=== PATIENT | female | born 1990 | race Caucasian/White ===

== ENCOUNTER 2025-11-23 08:56 | Emergency (ER) | payer OTHER, SELFPAY ==
--- NOTE | ~2025-11-23 | US_ITS ---
US abdomen limited INDICATION: Upper abdomen pain PROCEDURE: Realtime right upper abdominal ultrasound. COMPARISON: No prior studies for comparison. FINDINGS: The pancreas is normal without focal mass or pancreatic ductal dilation. Liver echotexture is increased, consistent with fatty infiltration. There is normal directional flow in the portal vein. There are gallstones. No gallbladder wall thickening or pericholecystic fluid. Common bile duct measures 4 mm. No sonographic Castano's sign. IMPRESSION: 1: Cholelithiasis. 2: Fatty infiltration of the liver. Reviewed, dictated and finalized at location O. TION GUIDE
--- NOTE | ~2025-11-23 | CT_ITS ---
CT abdomen pelvis w con Clinical History: upper abd pain, n/v . Comparison: None Technique: Axial images lung bases to symphysis pubis IV contrast information not listed in PACS Coronal, sagittal reformats CT images acquired with automatic exposure control for dose reduction DLP: 358 mGy-cm Findings: Lung bases: Clear. Visualized heart and pericardium: Unremarkable. Liver: Enlarged. Steatosis. Gallbladder: Unremarkable. Spleen: Unremarkable. Pancreas: Unremarkable. Adrenal glands: Unremarkable. Kidneys: Right kidney- No hydronephrosis. No renal stones. Left kidney- No hydronephrosis. No renal stones. Distal esophagus/stomach: Mild distal esophageal wall thickening/esophagitis. Small bowel loops: Normal caliber and wall thickness. Colon: Normal caliber and wall thickness. Normal RLQ appendix. Nodes: No enlarged nodes. Peritoneum: No ascites. No free air. Urinary bladder: Unremarkable. Uterus: IUD within presacral space rather than canal. Adnexa: No masses. Tampon within vagina. Bones: No acute bony abnormality. Soft tissues: Small umbilical hernia with fat. Aorta: No aneurysm or dissection. IVC: Unremarkable. Main portal vein/SMV/splenic vein: Patent. IMPRESSION: 1. No acute findings. 2. Malpositioned IUD, within right-sided perirectal fat rather than endometrial canal. Recommend gynecology consultation. Reviewed, dictated and finalized at location R. SS SERVICES REPRESENTATIVE IMPRESSION: 1. No acute findings. 2. Malpositioned IUD, within right-sided perirectal fat rather than endometria l canal. Recommend gynecology consultation.
--- OUTSIDE RECORDS SUMMARY | 2025-11-23 09:04 | XMS_ITS | Clinical Summary ---
Author Organization [facility] Medical Office Building B Address [address] [place] [address] Care Team Providers Care Balance Recesser Name Role Phone Maribel Jackson NP Primary Care Provider [phone] Allergies No known active allergies Medications ondansetron (ZOFRAN) 8 mg tablet Take by mouth every 8 (eight) hours as needed for nausea or vomiting. Active acetaminophen-as pirin-caffeine (EXCEDRIN MIGRAINE) 250-250-65 mg per tablet Take 1 tablet by mouth every 6 (six) hours as needed. Active topiramate (TOPAMAX) 50 mg tabletIndication s:Chronic migraine without aura without status migrainosus, not intractable Take 1 tablet (50 mg total) by mouth 2 (two) times a day. 60 tablet 3 9 Active SUMAtriptan (IMITREX) 100 mg tabletIndication s:Migraine Take one tabet po q2h prn as soon as feel headache is coming. No more than 2 tablets in 24 hours. 9 tablet 3 9 Active Active Problems Problem Noted Date Diagnosed Date Chronic migraine without aur a without status migrainosus, not intractable 12/28/2018 Medical History Medical History Date Comments Migraine Family History Medical History Relation Name Comments Migraines Mother Relation Name Status Comments Mother Social History Tobacco Use Types Packs/Day Years Used Date Smoking Tobacco: Former Cigarettes Smokeless Tobacco: Never Alcohol Use Standard Drinks/Week Comments Yes 0 (1 standard drink = 0.6 oz pur e alcohol) Comments No Sex and Gender Information Value Date Recorded Sex Assigned at Not on file 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 Gender Identity Not on file Sexual Orientation Not on file Last Filed Vital Signs Vital Sign Reading Time Taken Comments Blood Pressure 113/82 04/05/2021 12:59 PM CDT Pulse 101 04/05/2021 12:59 PM CDT Temperature 37.1 C (98.8 F) 04/05/2021 12:59 PM CDT Respiratory Rate 20 04/05/2021 12:59 PM CDT Oxygen Saturation 99% 04/05/2021 12:59 PM CDT Inhaled Oxygen Concentration - - Weight 59 kg (130 lb) 04/05/2021 1:01 PM CDT Height 157.5 cm (5' 2) 04/05/2021 1:01 PM CDT Body Mass Index 23.78 04/05/2021 1:01 PM CDT Plan of Treatment Health Maintenance Due Date Last Done Comments Cervical Cancer Screening 1990 Depression Screening 1990 Hepatitis C Screening 1990 Varicella Vaccines (1 of 2 - 13+ 2-dose series) 2003 Regular Well Visit/Exam 18-64 2008 HPV Vaccines (1 - 3-dose SCDM series) 2017 DTaP/Tdap/Td Vaccine (8 - Td or Tdap) 07/04/2022 07/04/2012, 06/27/2006, 07/12/1996, Additional history exists Covid-19 Vaccine (2024- season) 2025 10/26/2021, 04/06/2021, 03/09/2021 Influenza Vaccine (#1) 2025 Hepatitis B Screening Completed 06/24/2002 , 11/11/2001, 10/06/2001 Pneumococcal vaccine <65 Aged Out No longer eligible based on patient's age to complete this topic Insurance [facility] Care Teams Balance Recesser Relationship Specialty Start Date End Date Maribel Jackson NP [address] [facility] [address] [place] [address] PCP - General 04/05/21
--- OUTSIDE RECORDS SUMMARY | 2025-11-23 09:04 | XMS_ITS | Clinical Summary ---
Author Organization [facility] Address [address], [place] [address] Phone Care Team Providers Care Gatekeeper Name Role Phone Maribel Barahona APRN, LIBBY Primary Care Provid er Social History Tobacco Use Types Packs/Day Years Used Date Smoking Tobacco: Never Assessed Comments Unknown Sex and Gender Information Value Date Recorded Sex Assigned at Not on file Legal Sex Female 10:45 PM CDT Gender Identity Not on file Sexual Orientation Not on file Plan of Treatment Health Maintenance Due Date Last Done Comments Hepatitis C Virus (HCV) Screening 1990 Varicella Immunization (1 of 2 - 13+ 2-dose series) 2003 Pap Smear 2011 Cervical Cancer Screening (CCS) 2020 HPV/Cotest 2020 Influenza Immunization (#1) 2025 SARS-COV-2 Immunization ( season) 2025 10/26/2021, 04/06/2021, 03/09/2021 Respiratory Syncytial Virus (RSV) Immunization (Adult) (1 - 1-dose 75+ series) 2065 Hepatitis B Immunization Completed 002, 11/11/2001, 10/06/2001 DTaP/Tdap/Td Immunization Discontinued 2011, 06/27/2006, 07/12/1996, Additional history exists TdaP Immunization Completed 07/04/2012, 06/27/2006 Human Papillomavirus (HPV) Immunization (No Doses Required) Completed Meningococcal Immunization (ACWY) Aged Out No longer eligible based on patient's age to complete this topic Pneumococcal Immunization Combined Aged Out No longer eligible based on patient's age to complete this topic Rotavirus Immunization Aged Out No lo nger eligible based on patient's age to complete this topic Insurance MEDICAID [employer] Care Teams Gatekeeper Relationship Specialty Start Date End Date Maribel Barahona I, TECHNOLOGY METHODOLOGY CONSULTANT, LIME SUPERVISOR [address] [place] [address] [address] [place] [id number] PCP - General Advanced Practice Nurse 08/07/21
--- OUTSIDE RECORDS SUMMARY | 2025-11-23 09:04 | XMS_ITS | Clinical Summary ---
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 Gender Identity Not on file Sexual Orientation Not on file Plan of Treatment Health Maintenance Due Date Last Done Comments Cervical Cancer Screening Pa p Smear (Age 30 to 64) Every 3 Years 1990 Annual Physical 1993 Hepatitis C 2008 DTaP, Tdap and Td Vaccines ( 1 - Tdap) 2009 Hepatitis B Vaccines (1 of 3 - 19+ 3-dose series) 2009 HPV Vaccines (1 - 3-dose SCD M series) 2017 Cervical Cancer Screening Pa p with HPV Testing (Age 30 to 64) Every 5 Years 2020 Cervical Cancer Screening with HPV 2020 COVID-19 Vaccine ( - 2024-2 6 season) 2025 Influenza Adult (#1) 2025 Hepatitis A Vaccines Aged Out No long er eligible based on patient's age to complete this topic Meningococcal B Vaccine Aged Out No l onger eligible based on patient's age to complete this topic Meningococcal Vaccine Aged Out No josé antonio quoc eligible based on patient's age to complete this topic Pneumococcal Vaccine: Pediat rics (0 to 5 Years) and At-Risk Patients (6 to 49 Years) Aged Out No longer eligible b ased on patient's age to complete this topic RSV Immunizations Under 20 Months Aged Out No longer eligible based on patient's age to complete this topic
[2025-11-23 09:12] VITALS: BP 130/82; PULSE 78; RESP 18; TEMP 36.9; O2SAT 100
[2025-11-23 09:38] LABS: Hematocrit 38.1 % (37.0-47.0); Hemoglobin 12.7 g/dL (12.0-15.0); Immature Granulocyte Percent A 0.4 % (0-0.5); Lymphocytes Absolute Auto 2.17 K/mm3 (0.9-3.2); Mean Corpuscular HGB Conc 33.3 g/dl (32-36); Mean Corpuscular Hemoglobin 30.0 pg (26-34); Mean Corpuscular Volume 89.9 fl (80-100); Nucleated Red Blood Cells Absolute Auto 0.000 K/mm3 (0.0-0.012); Nucleated Red Blood Cells Perc 0.0 % (0.0-0.2); Platelet Count Result 376 k/mm3 (150-375); Red Blood Count 4.24 M/mm3 (4.2-5.4); White Blood Count 8.5 K/mm3 (4.5-10.0)
--- NOTE | 2025-11-23 09:38 | ECG_ITS ---
Test Date: 2025-11-23 09:55:18 Measurements Intervals [place]dwell Rate: 73 P: 47 MS: 158 QRS: 16 QRSD: 82 T: 7 QT: 379 QTc: 419 Interpretive Statements SINUS RHYTHM POSSIBLE LEFT ATRIAL ENLARGEMENT LOW QRS VOLTAGE IN PRECORDIAL LEADS POSSIBLE RIGHT VENTRICULAR CONDUCTION DELAY BORDERLINE T WAVE ABNORMALITY- ANTERIOR LEADS BASELINE ARTIFACT- I, II, III, AVR BORDERLINE ECG No previous ECG available for comparison Electronically Signed On 11-23-2025 10:28:32 COLLECTION SYSTEMS FOREMAN by Andrea Barger D.O.
[2025-11-23 09:39] LABS: Add Urine Microscopic? NO; Appearance Urine Clear (Clear); Glucose Urine UA Negative (Negative); Leukocyte Esterase Ur Negative LEU/UL (Negative); Nitrate Urine Negative (Negative); Specific Grav Ur 1.025 (1.001-1.035)
--- NOTE | 2025-11-23 09:42 | ED_ITS ---
HPI - Abdominal Pain General Chief Complaint: Abdominal Pain Stated Complaint: gallbladder attack Time Seen by Provider: 11/23/25 09:05 Source: patient Mode of arrival: ambulatory Limitations: no limitations History of Present Illness HPI narrative: Patient is a 34-year-old female who presents the ED with report of upper abdominal pain. Patient reports having intermittent pain throughout her upper abdomen over the past few days. Had a severe episode of pain Friday, associated with nausea and vomiting. Woke up this morning with recurrent episode of pain which prompted her presentation. States episodes of pain typically lasts 15-20 minutes at a time. She denies current pain. States she spoke to her primary care doctor and they were concerned for her gallbladder. She does note that the pain seems to be worse with certain foods. Denies diarrhea, constipation, fevers, urinary complaints. Related Data Allergies Allergy/AdvReac Type Severity Reaction Status Date / Time No Known Allergies Allergy Verified 11/23/25 09:46 Review of Systems 2 Review of Systems: All systems reviewed & are unremarkable except as noted in HPI. All systems reviewed & are unremarkable except as noted in HPI and below Exam 2 Narrative: GENERAL: Well appearing, well-nourished, non-toxic, in no acute distress. HEAD: Normocephalic, atraumatic. RESPIRATORY: Airway patent, respirations nonlabored. Clear to auscultation bilaterally, no rales, rhonchi, wheezing. CARDIOVASCULAR: Regular rate and rhythm without murmurs, rubs, or gallops. ABDOMINAL: Soft, minimal tenderness in epigastric/right upper quadrant, nondistended. Normoactive BS. MUSCULOSKELETAL: Moves all extremities. No gross deformities. SKIN: Warm, dry, normal color. NEURO: A&O X3. Speech clear. Cranial nerves II-XII grossly intact. Steady gait. No ataxic movements. PSYCHIATRIC: Appropriate mood and affect. Normal interaction. Course Vital Signs Vital signs: Vital Signs Temperature 98.5 F 11/23/25 09:12 Pulse Rate 78 11/23/25 09:12 Respiratory Rate 18 11/23/25 09:12 Blood Pressure 130/82 11/23/25 09:12 Pulse Oximetry 100 11/23/25 09:12 Oxygen Delivery Room Air 11/23/25 09:12 Temperature 98.5 F 11/23/25 09:12 Pulse Rate 78 11/23/25 11:10 Respiratory Rate 18 11/23/25 11:10 Blood Pressure 110/78 11/23/25 11:10 Pulse Oximetry 100 11/23/25 09:12 Oxygen Delivery Room Air 11/23/25 09:12 [facility] Narrative Medical decision making narrative: Patient presented to ED with several day history of intermittent upper abdominal pain. Denies current pain upon my evaluation. Vital signs stable upon arrival. Laboratory studies are unremarkable. No leukocytosis. Normal LFTs and lipase. UA is clear. EKG w/o ischemic changes. Trop undetectable. CT scan of abdomen/pelvis was obtained and without acute findings. Did show evidence of malpositioned IUD, which I made patient aware of will need further workup with her OBGYN. I did obtain right upper quadrant ultrasound which showed evidence of cholelithiasis. No evidence of cholecystitis. Normal CBD. Discussed lab and imaging findings with patient, likelihood of cholelithiasis, biliary colic. Discussed also possibility of gastritis/GERD picture and recommended [id number] PPI. Will refer to General surgery for further outpatient discussion of elective cholecystectomy. Discussed low-fat diet and importance of such. Will prescribe short course pain and nausea medicine for home you should episodes recur. Discussed strict return precautions. Discharged in stable condition. Differential Diagnosis Differential Diagnosis: Cholecystitis, cholelithiasis, biliary colic, GERD/gastritis Medical Records I have reviewed the following patient records and this information was taken into consideration when formulating the assessment and plan.: previous labs, previous ER visits, previous hospitalizations and previous clinic visits Lab Data [facility] Lab Attestation statement: I personally reviewed the patient's lab results. 11/23/25 09:31 11/23/25 09:31 Labs: Lab Results 11/23/25 11/23/25 Range/Units 09:31 10:41 WBC 8.5 (4.5-10.0) K/mm3 RBC 4.24 (4.2-5.4) M/mm3 Hgb 12.7 (12.0-15.0) g/dL Hct 38.1 (37.0-47.0) % MCV 89.9 (80-100) fl MCH 30.0 (26-34) pg MCHC 33.3 (32-36) g/dl RDW 12.6 (11.5-14.5) % Plt Count 376 H (150-375) k/mm3 MPV 9.8 (7.4-10.4) fl Immature Gran % (Auto) 0.4 (0-0.5) % Neut % (Auto) 63.0 (45.5-73.1) % Lymph % (Auto) 25.5 (18.3-44.2) % [place] % (Auto) 7.7 (2.6-8.5) % Eos % (Auto) 2.8 (0-4.4) % Baso % (Auto) 0.6 (0.2-1.2) % Lymph # (Auto) 2.17 (0.9-3.2) K/mm3 [place] # (Auto) 0.7 H (0.1-0.6) K/mm3 Eos # (Auto) 0.2 (0-0.3) K/mm3 Baso # (Auto) 0.1 (0.0-0.1) K/mm3 Abs Immat Gran (auto) 0.03 (0.00-0.031) K/mm3 Absolute Neuts (auto) 5.4 (1.3-6.7) K/mm3 Absolute Nucleated RBC 0.000 (0.0-0.012) K/mm3 Nucleated RBC % 0.0 (0.0-0.2) % Sodium 139 (137-145) mmol/L Potassium 4.1 (3.4-5.0) mmol/L Chloride 105 (98-107) mmol/L Carbon Dioxide 27 (22-30) mmol/L Anion Gap 7 (4-12) mmol/L BUN 16 (7-17) mg/dL Creatinine 0.73 (0.7-1.0) mg/dL Estim Creat Clear Calc 86 ml/min Estimated GFR > 60 (59 - ) Glucose 96 (65-110) mg/dL Calcium 9.1 (8.4-10.2) mg/dL Total Bilirubin 0.8 (0.2-1.3) mg/dL AST 34 (14-36) U/L ALT 24 (6-35) U/L Alkaline Phosphatase 74 (38-126) U/L Troponin I < 0.012 (0.000-0.034) ng/mL Total Protein 7.3 (6.3-8.2) g/dL Albumin 4.2 (3.5-5.1) g/dL Lipase 48 (23-300) U/L Urine Color Yellow (Yellow) Urine Appearance Clear (Clear) Urine pH 6.5 (5.0-9.0) Ur Specific [place] 1.025 (1.001-1.035) Urine Protein Negative (Negative) mg/dL Urine Glucose (UA) Negative (Negative) mg/dL Urine Ketones Negative (Negative) mg/dL Ur Blood (Man) Negative (Negative) Urine Nitrate Negative (Negative) Urine Bilirubin Negative (Negative) Urine Urobilinogen 1.0 (<2.0) mg/dL Leukocyte Esterase Rfl Negative (Negative) MIKAL/UL POC Urine HCG, Qual Negative (Negative) Imaging Data Attestation: I personally reviewed and interpreted this imaging study as follows: Radiologist's impression: ITS Impressions Abdomen/Pelvis CT 11/23/25 10:53 IMPRESSION: 1. No acute findings. 2. Malpositioned IUD, within right-sided perirectal fat rather than endometrial canal. Recommend gynecology consultation. Abdomen Ultrasound 11/23/25 11:36 IMPRESSION: 1: Cholelithiasis. 2: Fatty infiltration of the liver. ECG Data EKG #1: Attestation: I personally reviewed and interpreted this ECG as follows: ECG completion date: 11/23/25 ECG completion time: 09:55 normal rate (73), sinus rhythm and non-specific ST changes Discharge Plan Discharge Clinical Impression: Cholelithiasis Qualifiers: Cholelithiasis location: gallbladder Cholecystitis presence: without cholecystitis Biliary obstruction: without biliary obstruction Qualified Code(s): K80.20 - Calculus of gallbladder without cholecystitis without obstruction Patient Disposition: Home Condition: Stable Instructions: Antibiotic Form, Biliary Colic (ED), Gallstones (ED), Low Fat Diet (ED) Additional Instructions: Your imaging here showed evidence of gallstones. Maintain low fat diet. Follow-up with General surgery for further evaluation. Call office to make appointment. You may utilize Tylenol, ibuprofen, [place] as needed for recurrent pain episodes. Zofran as needed for nausea. Return to the ED if you experience worsening or severe/persistent pain, unable to keep down food or drink, fevers, or any other symptoms of concern. Patient Language: Micronesian Prescriptions: New ondansetron 4 mg tablet,disintegrating 4 mg PO Q8H PRN (Reason: nausea and vomiting) Qty: 15 0RF hydrocodone-acetaminophen 5-325 mg tablet 1 tablet PO Q6H PRN (Reason: pain) Qty: 14 0RF Follow-up/Referrals: Donny Unger MD [Physician, General Surgery] PHYSICIAN NOT ON STAFF,NONSTAFF [Primary Care Provider] Stand Alone Forms: Work/School Release IP Time of Disposition: 12:02
[2025-11-23] MEDS: PANTOPRAZOLE SODIUM IV 40 MG VIAL IV PUSH (09:49)
--- OUTSIDE RECORDS SUMMARY | 2025-11-23 09:50 | XMS_ITS | Clinical Summary ---
Author Organization [facility] Address [address], [place] [address] Phone Care Team Providers Care Precision Agronomist Name Role Phone Maribel Barahona APRN, LIBBY [...] Insurance MEDICAID [employer] Care Teams Precision Agronomist Relationship Specialty Start Date End Date Maribel Barahona I, COMMERCIAL ENERGY AUDITOR, EXCHANGE FLOOR MANAGER [address] [place] [address] [address] [place] [id number] PCP - General Advanced Practice Nurse 08/07/21
--- OUTSIDE RECORDS SUMMARY | 2025-11-23 09:50 | XMS_ITS | Clinical Summary ---
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
--- OUTSIDE RECORDS SUMMARY | 2025-11-23 09:51 | XMS_ITS | Clinical Summary ---
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
[2025-11-23 10:07] LABS: Alanine Aminotransferase 24 U/L (6-35); Albumin Level 4.2 g/dL (3.5-5.1); Alkaline Phosphatase 74 U/L (38-126); Anion Gap 7 mmol/L (4-12); Aspartate Amino Transferase 34 U/L (14-36); Bilirubin,Total 0.8 mg/dL (0.2-1.3); Blood Urea Nitrogen 16 mg/dL (7-17); Calcium 9.1 mg/dL (8.4-10.2); Carbon Dioxide 27 mmol/L (22-30); Chloride 105 mmol/L (98-107); Estimated CRCL calculation 86 ml/min; Estimated Glomerular Filt Rate > 60; Glucose 96 mg/dL (65-110); Lipase 48 U/L (23-300); Potassium 4.1 mmol/L (3.4-5.0); Sodium 139 mmol/L (137-145); Total Protein 7.3 g/dL (6.3-8.2)
[2025-11-23 10:14] LABS: Troponin I < 0.012 ng/mL (0.000-0.034)
[2025-11-23 10:42] LABS: BEDSIDEPREGUCG Negative (Negative)
[2025-11-23 11:10] VITALS: BP 110/78; PULSE 78; RESP 18
== END 2025-11-23 12:49 | disposition home or self-care (01) ==
PROVIDERS: Emergency Provider Physician Assistant
DX: K80.20 Calculus of gallbladder without cholecystitis without obstruction (principal)
CPT/HCPCS: 36415; 74177; 76705; 80053; 81003; 81025; 83690; 84484; 85025; 93005; 96374; 99284; J2470; Q9967